=== PATIENT | female | born 1995 | race Caucasian/White ===

== ENCOUNTER → 2017-02-18 | Outpatient (CLI) | payer BC ==
--- NOTE | 2017-02-18 14:37 | DIAGNOSTIC IMAGING REPORT ---
LEFT HAND MIN 3 VIEWS ROUTINE, LEFT WRIST W/NAVICULAR MIN 3 VIEWS HISTORY: 21 years-old Female LEFT HAND PAIN acute left hand and wrist pain without reported trauma. Initial exam. COMPARISON: None available. TECHNIQUE: 3 views of the left hand and 4 views of the left wrist. FINDINGS: HAND: No acute fracture, dislocation or significant degenerative changes. Soft tissues are unremarkable. WRIST: No acute fracture, dislocation or significant degenerative changes. Soft tissues are unremarkable without opaque foreign body. The scaphoid appears intact. IMPRESSION: No acute fracture, dislocation or significant degenerative changes of the left hand or wrist. The above report was generated using voice recognition software. It may contain grammatical, syntax or spelling errors. Electronically signed by: Douglas Conner M.D. 02/18/2017 2:35 PM Dictated Date/Time: 02/18/2017 2:32 PM
== END | disposition home or self-care (01) ==
LOC: C.RAD 14:02
PROVIDERS: ATTEND Family Medicine
DX: M25.532 Pain in left wrist (principal); M79.642 Pain in left hand